=== PATIENT | female | born 1985 | race Caucasian/White ===

== ENCOUNTER 2016-10-19 09:55 | Emergency (ER) | payer OTHER ==
[~2016-10-19] VITALS: Ht 172.7 cm; Wt 102.0 kg
[~2016-10-19 09:55] MED LIST: AMOXICILLIN500 MG PO; BACTRIM,SEPT1 TABLET PO; CLINDAMYCIN HC300 MG PO; ENDOCET 5-3251 EACH PO; FERROUS SULFAT325 MG PO; FIORICET WI1 CAPSULE PO; FLAGYL500 MG PO; FLINTSTONES CO1 EACH PO; IBUPROFEN800 MG; IMITREX100 MG PO; KEFLEX500 MG PO; MOBIC15 MG PO; MOTRIN600 MG PO; Motrin PO; NAPROSYN500 MG PO; NO HOME MEDS; PERCOCET 5/31 TABLET PO; PRENATAL TABLE1 EAC3; REGLAN10 MG PO; SKELAXIN800 MG PO; TIZANIDINE HCL4 MG PO; TORADOL10 MG PO; TYLENOL EXTRA500 MG PO; ULTRAM50 MG PO; VICODIN,LORT1 TABLET PO; ZOFRAN4 MG PO; ZOFRAN8 MG PO; [UNRECOGNIZED DRUG - OTHER] PO
[2016-10-19] MEDS ORDERED: TIZANIDINE HCL4 M1 PO (10:18)
[2016-10-19] MEDS ORDERED: LOTRIMIN AF24 GM TP (10:46)
[2016-10-19] MEDS ORDERED: PEN-VEE K,VEET500 MG PO (10:48)
[2016-10-19] MEDS ORDERED: ULTRAM50 MG PO (10:48)
== END 2016-10-19 11:31 | disposition home or self-care (01) ==
LOC: EME 09:55
DX: K02.9 Dental caries, unspecified (principal); B35.4 Tinea corporis
CPT/HCPCS: 99281; 99284

== ENCOUNTER 2016-11-01 18:06 | Emergency (ER) | payer OTHER ==
[~2016-11-01] VITALS: Ht 172.7 cm; Wt 105.1 kg
[~2016-11-01 18:06] MED LIST changes: +LOTRIMIN AF24 GM TP; +PEN-VEE K,VEET500 MG PO; +TIZANIDINE HCL4 M1 PO
[2016-11-01] MEDS ORDERED: NAPROSYN500 MG PO (19:48)
[2016-11-01] MEDS ORDERED: AMOXICILLIN500 MG PO (19:48)
[2016-11-01] MEDS ORDERED: FLEXERIL10 MG PO (19:48)
[2016-11-01 20:03] VITALS: BP 147/84
== END 2016-11-01 20:14 | disposition home or self-care (01) ==
LOC: EME 18:06
DX: H66.92 Otitis media, unspecified, left ear (principal); Z88.6 Allergy status to analgesic agent
CPT/HCPCS: 99281; 99284

== ENCOUNTER 2016-11-09 12:11 | Emergency (ER) | payer OTHER ==
[~2016-11-09] VITALS: Ht 172.7 cm; Wt 104.6 kg
[~2016-11-09 12:11] MED LIST changes: +FLEXERIL10 MG PO
[2016-11-09] MEDS ORDERED: PEN-VEE K,VEET500 MG PO (14:57)
[2016-11-09] MEDS ORDERED: ULTRAM50 MG PO (14:57)
[2016-11-09 15:43] VITALS: BP 118/65
== END 2016-11-09 15:43 | disposition home or self-care (01) ==
LOC: EME 12:11
DX: K02.9 Dental caries, unspecified (principal)
CPT/HCPCS: 99281; 99284